=== PATIENT | male | born 1970 | race Caucasian/White ===

== ENCOUNTER 2018-11-08 13:22 | Emergency (ER) | payer OTHER ==
[~2018-11-08] VITALS: Ht 167.6 cm; Wt 84.4 kg
[~2018-11-08 13:22] MED LIST: KETO10TA2 PO
[2018-11-08] MEDS ORDERED: COZAAR50 MG (13:45)
== END 2018-11-08 19:04 | disposition home or self-care (01) ==
LOC: ER 13:22
DX: S59.802A Other specified injuries of left elbow, initial encounter (principal); W18.39XA Other fall on same level, initial encounter; Y93.89 Activity, other specified; Y92.89 Other specified places as the place of occurrence of the external cause; Y99.8 Other external cause status

== ENCOUNTER → 2019-07-29 | Day surgery (SDC) | payer OTHER ==
[~2019-07-29] MED LIST changes: +COZAAR50 MG
== END | disposition home or self-care (01) ==
LOC: ADM 07-22 07:15 → AMB-ENDOS 06:30 → CIR.AMB 07:15 → AMB-ENDOS 07:15
DX: D12.2 Benign neoplasm of ascending colon (principal); K64.2 Third degree hemorrhoids

== ENCOUNTER 2020-10-20 13:15 | Emergency (ER) | payer OTHER ==
[~2020-10-20] VITALS: Ht 175.3 cm; Wt 0.5 kg
== END 2020-10-20 18:00 | disposition home or self-care (01) ==
LOC: ER 13:15
DX: J06.9 Acute upper respiratory infection, unspecified (principal); Z03.818 Encounter for observation for suspected exposure to other biological agents ruled out

== ENCOUNTER 2022-01-10 13:06 | Emergency (ER) | payer OTHER ==
[~2022-01-10] VITALS: Ht 170.2 cm; Wt 81.6 kg
[2022-01-10] MEDS ORDERED: LIPITOR20 MG PO (13:31)
== END 2022-01-10 15:58 | disposition home or self-care (01) ==
LOC: ER 13:06
DX: G44.40 Drug-induced headache, not elsewhere classified, not intractable (principal); T40.5X5A Adverse effect of cocaine, initial encounter; Y92.89 Other specified places as the place of occurrence of the external cause; F10.20 Alcohol dependence, uncomplicated; Z88.8 Allergy status to other drugs, medicaments and biological substances; F41.9 Anxiety disorder, unspecified

== ENCOUNTER 2023-03-31 09:25 | Outpatient (CLI) | payer OTHER ==
[~2023-03-31 09:25] MED LIST changes: +LIPITOR20 MG PO
== END 2023-03-31 09:28 | disposition home or self-care (01) ==
LOC: NUCLEAR 09:25
PROVIDERS: ATTEND Internal Medicine Hematology & Oncology
DX: R16.2 Hepatomegaly with splenomegaly, not elsewhere classified (principal); D64.9 Anemia, unspecified; D70.8 Other neutropenia; F10.10 Alcohol abuse, uncomplicated; F14.10 Cocaine abuse, uncomplicated

== ENCOUNTER 2023-07-31 05:38 | Emergency (ER) | payer OTHER ==
[~2023-07-31] VITALS: Ht 170.2 cm; Wt 81.6 kg
[2023-07-31] MEDS ORDERED: ANUSOL-HC25 MG RECTAL (07:07)
[2023-07-31] MEDS ORDERED: ANUSOL-HC30 G2 TOP (07:07)
== END 2023-07-31 07:17 ==
LOC: ER 05:39
DX: K64.4 Residual hemorrhoidal skin tags (principal); K64.9 Unspecified hemorrhoids; Z88.8 Allergy status to other drugs, medicaments and biological substances

== ENCOUNTER → 2024-04-22 | Emergency (ER) | payer OTHER ==
[~2024-04-22] VITALS: Ht 170.2 cm; Wt 81.6 kg
[~2024-04-22] MED LIST changes: +ANUSOL-HC25 MG RECTAL; +ANUSOL-HC30 G2 TOP
== END | disposition left against medical advice (07) ==
LOC: ER 10:27
DX: Z53.21 Procedure and treatment not carried out due to patient leaving prior to being seen by health care provider (principal)

== ENCOUNTER 2024-06-10 22:22 | Emergency (ER) | payer OTHER ==
[~2024-06-10] VITALS: Ht 170.2 cm; Wt 81.6 kg
[2024-06-11] MEDS ORDERED: KETOROLAC TROMETHAMINE 60 MG VIAL IM STA (01:32)
[2024-06-11] MEDS ORDERED: ORPHENADRINE CITRATE 30 MG/ML AMPUL IM STA (01:32)
[2024-06-11] MEDS ORDERED: ORPHENADRINE CITRATE 30 MG/ML AMPUL ONE (01:35)
[2024-06-11] MEDS ORDERED: KETOROLAC TROMETHAMINE 60 MG VIAL IM ONE (01:36)
== END 2024-06-11 02:20 | disposition home or self-care (01) ==
LOC: ER 22:24
DX: S40.012A Contusion of left shoulder, initial encounter (principal); W19.XXXA Unspecified fall, initial encounter; Y93.89 Activity, other specified; Y92.89 Other specified places as the place of occurrence of the external cause; Y99.8 Other external cause status; I10 Essential (primary) hypertension; Z88.6 Allergy status to analgesic agent

== ENCOUNTER → 2024-12-22 06:19 | Outpatient (CLI) | payer OTHER ==
[2024-12-22 07:55] LABS: HEMATOCRIT 44.5 % (39.0-48.0); HEMOGLOBIN 14.8 g/dL (13-16.00); MEAN CORPUSCULAR HEMOGLOBIN 32.3 pg (27.00-32.0); MEAN CORPUSCULAR HGB CONC 33.2 g/dl (32.0-36.0); PLATELET COUNT 181 K/uL (150-450); RED BLOOD COUNT 4.59 M/uL (4.00-6.00); RED CELL DISTRIBUTION WIDTH 13.7 % (11.5-14.5)
[2024-12-22 08:19] LABS: ALBUMIN 4.2 gm/dL (3.4-5.0); BILIRUBIN TOTAL 0.81 mg/dL (0.3-1.2); CALCIUM 9.1 mg/dL (8.5-10.1); CHOL HDL RATIO 2.3 (0-5.0); CREATININE SERUM 0.95 mg/dL (0.70-1.30); GFR 82.31; GLOBULINA 3.6 G/DL (2.4-3.5); POTASSIUM 4.39 mEq/L (3.5-5.1); PROSTATIC SPECIFIC ANTIGEN 0.792 NG/ML (0.010-4.00); T4 FREE 0.64 NG/ML (0.76-1.46); TOTAL PROTEIN 7.8 gm/dL (6.4-8.2); TSH 0.729 uIU/mL (0.358-3.74)
[2024-12-22 08:42] LABS: URINE APPEARANCE Clear; URINE BILIRRUBIN Negative (NEGATIVE); URINE BLOOD Negative; URINE COLOR Yellow; URINE GLUCOSE Negative (NEGATIVE); URINE KETONE Negative (NEGATIVE); URINE LEUKOCYTE Negative; URINE NITRATE Negative; URINE PROTEIN Negative (NEGATIVE)
[2024-12-22 08:45] LABS: URINE BACTERIA 6.1 uL (0.0-1933); URINE RBC 3.3 uL (0.0-20.8)
[2024-12-22 09:00] LABS: URINE CAST 0.14 uL (0.0-1.40); URINE EPITHELIAL CELLS 0.9 uL (0.0-38.8)
[2024-12-23 08:04] LABS: hav igm Negative (Negative); hcv Non Reactive (Non Reactive); hep b c Negative (Negative); hep b s ag Negative (Negative)
[2024-12-23 10:08] LABS: % FREE PSA 34.3 % (.); free psa 0.24 ng/mL; total psa 0.7 ng/mL (0.0-4.0)
[2024-12-24 00:08] LABS: chla t Negative (Negative); neiss Negative (Negative)
== END | disposition home or self-care (01) ==
LOC: LAB 06:19
PROVIDERS: ATTEND General Practice
DX: E78.5 Hyperlipidemia, unspecified (principal); I10 Essential (primary) hypertension; E66.3 Overweight; Z12.5 Encounter for screening for malignant neoplasm of prostate; Z12.11 Encounter for screening for malignant neoplasm of colon; Z11.3 Encounter for screening for infections with a predominantly sexual mode of transmission; Z11.4 Encounter for screening for human immunodeficiency virus [HIV]

== ENCOUNTER 2024-12-22 07:07 | Outpatient (CLI) | payer OTHER | END 2024-12-22 07:09 | disposition home or self-care (01) | LOC: SONOGRAMA 07:07 | PROVIDERS: ATTEND General Practice | DX: R10.9 Unspecified abdominal pain (principal); E78.5 Hyperlipidemia, unspecified; I10 Essential (primary) hypertension ==

== ENCOUNTER → 2024-12-26 06:04 | Outpatient (CLI) | payer OTHER ==
[2024-12-26 12:47] LABS: ob NEGATIVE (NEGATIVE)
== END | disposition home or self-care (01) ==
LOC: LAB 06:04
PROVIDERS: ATTEND General Practice
DX: E78.5 Hyperlipidemia, unspecified (principal); I10 Essential (primary) hypertension; E66.3 Overweight; Z12.5 Encounter for screening for malignant neoplasm of prostate; Z12.11 Encounter for screening for malignant neoplasm of colon; Z11.3 Encounter for screening for infections with a predominantly sexual mode of transmission; Z11.4 Encounter for screening for human immunodeficiency virus [HIV]

== ENCOUNTER → 2025-01-05 | Outpatient (CLI) | payer OTHER | END | disposition home or self-care (01) | LOC: SONOGRAMA 06:42 | PROVIDERS: ATTEND General Practice | DX: R80.9 Proteinuria, unspecified (principal); E07.9 Disorder of thyroid, unspecified ==

== ENCOUNTER → 2025-10-10 13:38 | Outpatient (CLI) | payer OTHER | END | disposition home or self-care (01) | LOC: LAB 13:38 | PROVIDERS: ATTEND Specialist | DX: L02.91 Cutaneous abscess, unspecified (principal) ==